=== PATIENT | female | born 1965 | race Caucasian/White ===

== ENCOUNTER → 2016-07-13 | Outpatient (CLI) | payer OTHER ==
[2016-07-13 11:11] LABS: FOLATE 9.78 ng/mL (>2.76)
== END ==
LOC: CCC 08:43
DX: M54.6 Pain in thoracic spine (principal); G62.9 Polyneuropathy, unspecified
CPT/HCPCS: 36415; 72070; 82607; 82746; 84443

== ENCOUNTER → 2016-07-19 | Outpatient (CLI) | payer OTHER | LOC: RAD 08:43 | DX: R25.1 Tremor, unspecified (principal); R26.81 Unsteadiness on feet | CPT/HCPCS: 82565; 70553; A9577 ==

== ENCOUNTER → 2016-07-19 | Outpatient (CLI) | payer OTHER ==
[2016-07-19 12:21] LABS: FOLATE 12.7 ng/mL (>2.76)
== END ==
LOC: CCC 10:09
DX: R26.81 Unsteadiness on feet (principal); G62.9 Polyneuropathy, unspecified
CPT/HCPCS: 36415; 82607; 82746; 84443; 86592

== ENCOUNTER 2017-01-02 09:50 | Emergency (ER) | payer OTHER ==
[2017-01-02] MEDS ORDERED: CARBAMAZEPINE 100 MG TAB.CHEW PO ONE (10:07)
[2017-01-02] MEDS ORDERED: HYDROCODONE/ACETAMINOPHEN 5-325 MG TABLET PO ONE ×2 (10:07→11:20)
--- NOTE | 2017-01-02 11:30 | ER Document Report ---
ED General - General Chief Complaint: Other Stated Complaint: FACIAL PAIN Time Seen by Provider: 01/02/17 10:05 Information source: Patient Notes: Patient presents with left facial pain. It is been going on for approximately 2 weeks. She states it is worse if she moves her mouth such as talking or chewing. Is also worse if it is touched. It is better at rest. It is severe and intermittent. It is a sharp pain. It radiates across her face. She denies any known injuries. She states she did go see her dentist and was informed by the dentist that there is no dental problems contributing to the pain. She states that her neurologist told her she may have trigeminal neuralgia and referred her to the emergency department. TRAVEL OUTSIDE OF THE [place] IN LAST 30 DAYS: No - Related Data Allergies/Adverse Reactions: sulfamethoxazole [From ] Allergy (Verified 01/02/17 09:55) trimethoprim [From Janra] Allergy (Verified 01/02/17 09:55) Past Medical History - General Information source: Patient - Social History Smoking Status: Never Smoker Chew tobacco use (# tins/day): No Frequency of alcohol use: None Drug Abuse: None Family History: Reviewed & Not Pertinent - Past Medical History Cardiac Medical History: Reports: Hx Hypertension Neurological Medical History: Reports: Hx Migraine - persistant and frequent Renal/ Medical History: Denies: Hx Peritoneal Dialysis Surgical Hx: Negative - Immunizations Immunizations up to date: Yes Hx Diphtheria, Pertussis, Tetanus Vaccination: Yes Review of Systems - Review of Systems Constitutional: denies: Chills, Fever Cardiovascular: denies: Chest pain, Palpitations Respiratory: denies: Cough, Short of breath Gastrointestinal: denies: Diarrhea, Vomiting Skin: denies: Change in color, Lesions -: Yes All other systems reviewed and negative Physical Exam - Vital signs Vitals: Temp Pulse Resp BP Pulse Ox 97.3 F 82 18 131/64 H 99 01/02/17 09:56 01/02/17 09:56 01/02/17 09:56 01/02/17 09:56 01/02/17 09:56 Interpretation: Normal - General General appearance: Appears well, Alert - HEENT Head: Normocephalic, Atraumatic Eyes: Normal Pupils: PERRL Notes: Face is tender to palpation. Inspection of the face is unremarkable. - Respiratory Respiratory status: No respiratory distress Chest status: Nontender Breath sounds: Normal Chest palpation: Normal - Cardiovascular Rhythm: Regular Heart sounds: Normal auscultation Murmur: No - Abdominal Inspection: Normal Distension: No distension Bowel sounds: Normal Tenderness: Nontender Organomegaly: No organomegaly - Back Back: Normal, Nontender - Extremities General upper extremity: Normal inspection, Nontender, Normal color, Normal ROM , Normal temperature General lower extremity: Normal inspection, Nontender, Normal color, Normal ROM , Normal temperature, Normal weight bearing. No: Hernandez's sign - Neurological Neuro grossly intact: Yes Cognition: Normal Orientation: AAOx4 [place] Coma Scale Eye Opening: Spontaneous [place] Coma Scale Verbal: Oriented [place] Coma Scale Motor: Obeys Commands [place] Coma Scale Total: 15 Speech: Normal Motor strength normal: LUE, RUE, LLE, RLE Sensory: Normal - Psychological Associated symptoms: Normal affect, Normal mood - Skin Skin Temperature: Warm Skin Moisture: Dry Skin Color: Normal Course - Vital Signs Vital signs: Temp Pulse Resp BP Pulse Ox 97.3 F 82 18 131/64 H 99 01/02/17 09:56 01/02/17 09:56 01/02/17 09:56 01/02/17 09:56 01/02/17 09:56 Discharge - Discharge Clinical Impression: Trigeminal neuralgia of left side of face Condition: Stable Disposition: HOME, SELF-CARE Instructions: Trigeminal Neuralgia ([facility]) Additional Instructions: Please follow-up with your neurologist as soon as possible. While you are taking Tegretol will be very important that your CBC (complete blood count) is monitored regularly by your physician. Prescriptions: Carbamazepine [Tegretol 100 Mg Chewable Tablet] 100 mg PO TID #90 tab.chew Hydrocodone/Acetaminophen [[place] 5-325 mg Tablet] 1 tab PO QID PRN #12 tablet PRN Reason:
[2017-01-02 11:48] VITALS: BP 124/85
== END 2017-01-02 11:48 | disposition home or self-care (01) ==
LOC: ER 09:50
DX: G50.0 Trigeminal neuralgia (principal); I10 Essential (primary) hypertension; Z88.1 Allergy status to other antibiotic agents
CPT/HCPCS: 99283; J3490

== ENCOUNTER 2017-01-08 14:11 | Emergency (ER) | payer OTHER ==
[2017-01-08 14:39] VITALS: BP 116/68
--- NOTE | 2017-01-08 15:19 | ER Document Report ---
ED General - General Chief Complaint: Other Stated Complaint: FACE PAIN Time Seen by Provider: 01/08/17 14:58 Mode of Arrival: Ambulatory Information source: Patient Notes: 51-year-old female history of multiple sclerosis and recent diagnosis of trigeminal neuralgia presents with complaints of improvement of her pain initially but now has worsened. Patient was started on Tegretol, but states when she cries her face hurts that she needs to cry TRAVEL OUTSIDE OF THE [place] IN LAST 30 DAYS: No - HPI Onset: Last week Onset/Duration: Intermittent Quality of pain: Burning Severity: Moderate Pain Level: 2 Associated symptoms: Other Exacerbated by: Other - Crying Relieved by: Denies Similar symptoms previously: Yes Recently seen / treated by doctor: Yes - Related Data Allergies/Adverse Reactions: sulfamethoxazole [From Janra] Allergy (Verified 01/08/17 14:52) trimethoprim [From Janra] Allergy (Verified 01/08/17 14:52) Past Medical History - Social History Smoking Status: Never Smoker Cigarette use (# per day): No Chew tobacco use (# tins/day): No Smoking Education Provided: No Frequency of alcohol use: None Drug Abuse: None Family History: Reviewed & Not Pertinent Patient has suicidal ideation: No Patient has homicidal ideation: No - Past Medical History Cardiac Medical History: Reports: Hx Hypertension Neurological Medical History: Reports: Hx Migraine - persistant and frequent Renal/ Medical History: Denies: Hx Peritoneal Dialysis Past Surgical History: Reports: Hx Tonsillectomy - Immunizations Immunizations up to date: Yes Hx Diphtheria, Pertussis, Tetanus Vaccination: Yes Review of Systems - Review of Systems Notes: REVIEW OF SYSTEMS: CONSTITUTIONAL : Denies fever, chills, or sweats. Denies recent illness. EENT: Admits to facial pain CARDIOVASCULAR: Denies chest pain. Denies palpitations or racing or irregular heart beat. Denies ankle edema. RESPIRATORY: Denies cough, cold, or chest congestion. Denies shortness of breath, difficulty breathing, or wheezing. GASTROINTESTINAL: Denies abdominal pain or distention. Denies nausea, vomiting , or diarrhea. Denies blood in vomitus, stools, or per rectum. Denies black, tarry stools. Denies constipation. GENITOURINARY: Denies difficulty urinating, painful urination, burning, frequency, blood in urine, or discharge. FEMALE GENITOURINARY: Denies vaginal bleeding, heavy or abnormal periods, irregular periods. Denies vaginal discharge or odor. MUSCULOSKELETAL: Denies back or neck pain or stiffness. Denies joint pain or swelling. SKIN: Denies rash, lesions or sores. HEMATOLOGIC : Denies easy bruising or bleeding. LYMPHATIC: Denies swollen, enlarged glands. NEUROLOGICAL: Admits to tremors PSYCHIATRIC: Tearful ALL OTHER SYSTEMS REVIEWED AND NEGATIVE. PHYSICAL EXAMINATION: GENERAL: Well-appearing, well-nourished and in no acute distress. HEAD: Atraumatic, normocephalic. EYES: Pupils equal round and reactive to light, extraocular movements intact, conjunctiva are normal. ENT: Tenderness on palpation of the left cheek NECK: Normal range of motion, supple without lymphadenopathy LUNGS: Breath sounds clear to auscultation bilaterally and equal. No wheezes rales or rhonchi. HEART: Regular rate and rhythm without murmurs ABDOMEN: Soft, nontender, nondistended abdomen. No guarding, no rebound. No masses appreciated. Female : deferred Musculoskeletal: Normal range of motion, no pitting or edema. No cyanosis. NEUROLOGICAL: Cranial nerves grossly intact. Normal speech, normal gait. Normal sensory, motor exams PSYCH: Patient is extremely tearful SKIN: Warm, Dry, normal turgor, no rashes or lesions noted. Dictation was performed using [employer] voice recognition software Physical Exam - Vital signs Vitals: Temp Pulse Resp BP Pulse Ox 97.6 F 83 17 116/68 100 01/08/17 14:36 01/08/17 14:36 01/08/17 14:36 01/08/17 14:36 01/08/17 14:36 Course - Re-evaluation Re-evalutation: 01/08/17 20:27 Patient's examination was compounded with the fact that instead of talking about her current symptoms are pain patient spent approximately 20 minutes crying stating that she has no money, that her MS has caused her to need disability but that no medical surgical tech will help her, patient continues to complain about place she worked at stating that they are lying about her working so they do not have to pay her I will treat the patient with Neurontin for her pain, I have found a ad for lower cost for her After performing a Medical Screening Examination, I estimate there is LOW risk for a DEEP SPACE INFECTION (e.g., KATIE'S ANGINA OR RETROPHARYNGEAL ABSCESS), MENINGITIS, INTRACRANIAL HEMORRHAGE, or AIRWAY COMPROMISE, thus I consider the discharge disposition reasonable. Also, there is no evidence or peritonitis, sepsis, or toxicity. I have reevaluated this patient multiple times and no significant life threatening changes are noted. The patient and I have discussed the diagnosis and risks, and we agree with discharging home with close follow-up with the understanding that symptoms and presentations can change. We also discussed returning to the Emergency Department immediately if new or worsening symptoms occur. We have discussed the symptoms which are most concerning (e.g., changing or worsening pain, trouble swallowing or breathing, neck stiffness or fever) that necessitate immediate return. - Vital Signs Vital signs: Temp Pulse Resp BP Pulse Ox 97.6 F 83 17 116/68 100 01/08/17 14:36 01/08/17 14:36 01/08/17 14:36 01/08/17 14:36 01/08/17 14:36 Discharge - Discharge Clinical Impression: Trigeminal neuralgia of left side of face Condition: Stable Disposition: HOME, SELF-CARE Instructions: Neuropathy ([facility]) Additional Instructions: Please see Dr. Franklni immediately for you concerns return if there are any other concerns Prescriptions: Gabapentin 300 mg PO BID #60 capsule
== END 2017-01-08 15:29 | disposition home or self-care (01) ==
LOC: ER 14:11
DX: G50.0 Trigeminal neuralgia (principal); G35 Multiple sclerosis; R25.1 Tremor, unspecified; I10 Essential (primary) hypertension; Z88.1 Allergy status to other antibiotic agents
CPT/HCPCS: 99283

== ENCOUNTER 2017-01-23 09:37 | Emergency (ER) | payer OTHER ==
[2017-01-23] MEDS ORDERED: DEXAMETHASONE SOD PHOS INJ 10 MG/1 ML VIAL IM ONE (10:02)
[2017-01-23] MEDS ORDERED: DIPHENHYDRAMINE HCL 50 MG/ML VIAL IM ONE (10:02)
[2017-01-23] MEDS ORDERED: FAMOTIDINE 20 MG TABLET PO ONE (10:03)
--- NOTE | 2017-01-23 10:05 | ER Document Report ---
ED General - General Chief Complaint: Allergic Reaction Stated Complaint: POSSIBLE ALLERGIC REACTION Time Seen by Provider: 01/23/17 09:58 Mode of Arrival: Ambulatory Information source: Patient Notes: 51-year-old female history of multiple sclerosis who presents with complaints of allergic reaction. Patient notes she noted a rash over the past few days but worsened yesterday now throughout her body. Patient denies any fevers or chills denies any sob, throat closing TRAVEL OUTSIDE OF THE [place] IN LAST 30 DAYS: No - HPI Onset: Last week Onset/Duration: Persistent, Worse Quality of pain: No pain Severity: Mild Pain Level: Denies Associated symptoms: Allergy/hay fever Exacerbated by: Denies Relieved by: Denies Similar symptoms previously: No Recently seen / treated by doctor: Yes - Related Data Allergies/Adverse Reactions: sulfamethoxazole [From ] Allergy (Verified 01/23/17 09:39) trimethoprim [From Janra] Allergy (Verified 01/23/17 09:39) Past Medical History - Social History Smoking Status: Never Smoker Cigarette use (# per day): No Chew tobacco use (# tins/day): No Smoking Education Provided: No Family History: Reviewed & Not Pertinent Patient has suicidal ideation: No - Past Medical History Cardiac Medical History: Reports: Hx Hypertension Neurological Medical History: Reports: Hx Migraine - persistant and frequent Renal/ Medical History: Denies: Hx Peritoneal Dialysis Past Surgical History: Reports: Hx Tonsillectomy - Immunizations Immunizations up to date: Yes Hx Diphtheria, Pertussis, Tetanus Vaccination: Yes Review of Systems - Review of Systems Notes: REVIEW OF SYSTEMS: CONSTITUTIONAL : Denies fever, chills, or sweats. Denies recent illness. EENT: Denies eye, ear, throat, or mouth pain or symptoms. Denies nasal or sinus congestion or discharge. Denies throat, tongue, or mouth swelling or difficulty swallowing. CARDIOVASCULAR: Denies chest pain. Denies palpitations or racing or irregular heart beat. Denies ankle edema. RESPIRATORY: Denies cough, cold, or chest congestion. Denies shortness of breath, difficulty breathing, or wheezing. GASTROINTESTINAL: Denies abdominal pain or distention. Denies nausea, vomiting , or diarrhea. Denies blood in vomitus, stools, or per rectum. Denies black, tarry stools. Denies constipation. GENITOURINARY: Denies difficulty urinating, painful urination, burning, frequency, blood in urine, or discharge. FEMALE GENITOURINARY: Denies vaginal bleeding, heavy or abnormal periods, irregular periods. Denies vaginal discharge or odor. MUSCULOSKELETAL: Denies back or neck pain or stiffness. Denies joint pain or swelling. SKIN: Admits to rash all throughout her body HEMATOLOGIC : Denies easy bruising or bleeding. LYMPHATIC: Denies swollen, enlarged glands. NEUROLOGICAL: Denies confusion or altered mental status. Denies passing out or loss of consciousness. Denies dizziness or lightheadedness. Denies headache. Denies weakness or paralysis or loss of use of either side. Denies problems with gait or speech. Denies sensory loss, numbness, or tingling. Denies seizures. PSYCHIATRIC: Denies anxiety or stress. Denies depression, suicidal ideation, or homicidal ideation. ALL OTHER SYSTEMS REVIEWED AND NEGATIVE. PHYSICAL EXAMINATION: GENERAL: Well-appearing, well-nourished and in no acute distress. HEAD: Atraumatic, normocephalic. EYES: Pupils equal round and reactive to light, extraocular movements intact, conjunctiva are normal. ENT: Nares patent, oropharynx clear without exudates. Moist mucous membranes. NECK: Normal range of motion, supple without lymphadenopathy LUNGS: Breath sounds clear to auscultation bilaterally and equal. No wheezes rales or rhonchi. HEART: Regular rate and rhythm without murmurs ABDOMEN: Soft, nontender, nondistended abdomen. No guarding, no rebound. No masses appreciated. Female : deferred Musculoskeletal: Normal range of motion, no pitting or edema. No cyanosis. NEUROLOGICAL: Cranial nerves grossly intact. Normal speech, normal gait. Normal sensory, motor exams PSYCH: Normal mood, normal affect. SKIN: Generalized urticarial rash noted in arms legs chest abdomen back Dictation was performed using [employer] voice recognition software Course - Re-evaluation Re-evalutation: 01/23/17 10:18 Patient does admit to a new soap states she washed her clothes afterwards. I believe this may be the cause of it, she states she does not have the financial ability to purchase prednisone which I explained to her was on the $4 list therefore I will give her an injection of Decadron here Pepcid and Benadryl. Patient instructed him very strict return precautions regarding allergic reactions After performing a Medical Screening Examination, I estimate there is LOW risk for AIRWAY COMPROMISE, ANAPHYLAXIS, CELLULITIS, EPIGLOTTIS, or NECROTIZING FASCIITIS, thus I consider the discharge disposition reasonable. Also, there is no evidence or peritonitis, sepsis, or toxicity. I have reevaluated this patient multiple times and no significant life threatening changes are noted. The patient and I have discussed the diagnosis and risks, and we agree with discharging home with close follow-up with the understanding that symptoms and presentations can change. We also discussed returning to the Emergency Department immediately if new or worsening symptoms occur. We have discussed the symptoms which are most concerning (e.g., difficulty breathing or swallowing , fever, changing or worsening pain) that necessitate immediate return. Discharge - Discharge Clinical Impression: Allergic dermatitis Condition: Stable Disposition: HOME, SELF-CARE Instructions: Acute Allergic Reaction ([facility]), Contact Dermatitis ([facility]) Additional Instructions: Please follow-up with her primary care physician for reevaluation of your allergic reaction return immediately if there is any other concerns Prescriptions: Diphenhydramine HCl [Benadryl 50 mg Capsule] 1 cap PO Q6 PRN #20 capsule PRN Reason: Prednisone 60 mg PO DAILY 5 Days tablet
== END 2017-01-23 10:12 | disposition home or self-care (01) ==
LOC: ER 09:37
DX: L23.9 Allergic contact dermatitis, unspecified cause (principal); I10 Essential (primary) hypertension; Z88.1 Allergy status to other antibiotic agents
CPT/HCPCS: 99283; 96372; J1200; J1100

== ENCOUNTER 2017-02-14 08:38 | Emergency (ER) | payer OTHER ==
[2017-02-14] MEDS ORDERED: DEXAMETHASONE SOD PHOS INJ 10 MG/1 ML VIAL IM ONE (10:05)
[2017-02-14] MEDS ORDERED: HYDROXYZINE PAMOATE 25 MG CAPSULE PO ONE (10:06)
[2017-02-14] MEDS ORDERED: FAMOTIDINE 20 MG TABLET PO ONE (10:06)
--- NOTE | 2017-02-14 11:09 | ER Document Report ---
HPI - HPI Patient complains to provider of: Rash and eye swelling Onset: Other Onset/Duration: Intermittent Quality of pain: Burning Severity: Moderate Pain Level: 4 Context: Patient complains of intermittent rash to arms, thighs and chest. Now has some rash on her face and her eyes were swollen this morning. The swelling has since gone down. Patient describes rash as itchy. No vision problems. Associated Symptoms: None Exacerbated by: Other - Scratching Relieved by: Denies Similar symptoms previously: Yes Recently seen / treated by doctor: No - ROS ROS below otherwise negative: Yes Systems Reviewed and Negative: Yes All other systems reviewed and negative - CONSTITUTIONAL Constitutional: DENIES: Fever - EENT EENT: DENIES: Sore Throat, Congestion - NEURO Neurology: DENIES: Headache, Vision blurred - CARDIOVASCULAR Cardiovascular: DENIES: Chest pain - RESPIRATORY Respiratory: DENIES: Trouble Breathing - GASTROINTESTINAL Gastrointestinal: DENIES: Abdominal Pain - URINARY Urinary: DENIES: Dysuria - REPRODUCTIVE Reproductive: DENIES: : - MUSCULOSKELETAL Musculoskeletal: DENIES: Extremity pain - DERM Skin Color: Erythema Skin Problems: Rash Past Medical History - General Information source: Patient - Social History Smoking Status: Never Smoker Frequency of alcohol use: None Drug Abuse: None Lives with: Family Family History: Reviewed & Not Pertinent - Past Medical History Cardiac Medical History: Reports: Hx Hypertension Neurological Medical History: Reports: Hx Migraine - persistant and frequent, Other - Multiple sclerosis Past Surgical History: Reports: Hx Tonsillectomy - Immunizations Immunizations up to date: Yes Hx Diphtheria, Pertussis, Tetanus Vaccination: Yes Vertical Provider Document - CONSTITUTIONAL Agree With Documented VS: Yes Exam Limitations: No Limitations General Appearance: WD/WN, Mild Distress - Patient appears anxious and tearful - INFECTION CONTROL TRAVEL OUTSIDE OF THE [place] IN LAST 30 DAYS: No - HEENT HEENT: Atraumatic, Normocephalic, PERRLA. negative: Conjuctival Injection - RESPIRATORY Respiratory: Breath Sounds Normal, No Respiratory Distress O2 Sat by Pulse Oximetry: 100 - CARDIOVASCULAR Cardiovascular: Regular Rate, Regular Rhythm - GI/ABDOMEN Gastrointestinal: Abdomen Soft - MUSCULOSKELETAL/EXTREMETIES Musculoskeletal/Extremeties: MAEW - NEURO Level of Consciousness: Awake, Alert - DERM Integumentary: Warm, Dry, Rash - Patchy red rash over arms, chest, and thighs. Dry red skin noted around both eyes, no edema noted. Patient keeps rubbing eyes. Sclerae clear, no discharge Course - Vital Signs Vital signs: Temp Pulse Resp BP Pulse Ox 97.8 F 84 120/73 100 02/14/17 09:08 02/14/17 09:08 02/14/17 09:08 02/14/17 09:08 Discharge - Discharge Clinical Impression: Rash Condition: Good Disposition: HOME, SELF-CARE Additional Instructions: OTC hydrocortisone to rash twice daily, do not use around the eyes. Apply cool compresses to eyes for any itching. OTC Benadryl 1-2 tabs every 6 hours as needed for itching OTC Pepcid 20 mg every 12 hours for itching Follow-up with [facility] next February 24 at 10 AM as scheduled Return if symptoms worsen and as needed.
[2017-02-14 11:39] VITALS: BP 122/64
== END 2017-02-14 11:17 | disposition home or self-care (01) ==
LOC: ER 08:38
DX: R21 Rash and other nonspecific skin eruption (principal); R22.0 Localized swelling, mass and lump, head; I10 Essential (primary) hypertension
CPT/HCPCS: 99282; J1100

== ENCOUNTER 2018-04-23 09:23 | Day surgery (SDC) | payer MEDICARE, MEDICAID ==
[~2018-04-23 09:23] MED LIST: PROPOFOL INJ 200 MG/20 ML VIAL IV ONE
[2018-04-23] MEDS ORDERED: KETOROLAC TROMETHAMINE INJ/PF 30 MG/1 ML SDV ONE (10:42)
[2018-04-23] MEDS ORDERED: ACETAMINOPHEN 1,000 MG/100 ML RTUPB IV ONE (11:30)
[2018-04-23 12:09] VITALS: BP 144/88
--- NOTE | 2018-04-23 12:24 | Operative Report ---
Operative Report DATE OF SURGERY: 04/23/18 Operative Report: The risks, benefits and alternatives of the procedure including the risk of bleeding, perforation requiring surgery are explained to the patient in detail and informed consent is obtained. Patient is brought to the endoscopy suite and placed in the left, lateral decubital position. Timeout was called. Propofol medications administered. Rectal examination is done which did not reveal any masses, tears or fissures. An Olympus videoscope was introduced into the patient's rectum. The scope was then carefully advanced all the way to the cecum. The cecum was identified by the usual anatomical landmarks including the ileocecal valve as well as the appendiceal office. Photodocumentation is obtained. The scope was then sequentially pulled back via the various segments of the colon including the ascending colon, hepatic flexure, transverse colon, splenic flexure, descending colon and finally into the rectosigmoid portions of the colon. Retroflexion maneuver is performed. PREOPERATIVE DIAGNOSIS: Colorectal cancer screening. POSTOPERATIVE DIAGNOSIS: Large polyp in the descending colon that was removed via snare polypectomy; placement of an Endo Clip at the post polypectomy site to reduce the risk of post polypectomy bleeding. Right side colon Inflammation status post biopsy. Internal hemorrhoids OPERATION: Colonoscopy with snare polypectomy. Colonoscopy with biopsy SURGEON: WILLIAM MARTÍNEZ ANESTHESIA: LMAC TISSUE REMOVED OR ALTERED: As noted above. COMPLICATIONS: None. ESTIMATED BLOOD LOSS: None. INTRAOPERATIVE FINDINGS: As noted above. PROCEDURE: Patient tolerated procedure well. No immediate postprocedure comp occasions are noted. Patient discharged in good condition. Discharge date 04/23/2018. Discharge diet: Regular. Discharge activity: Regular. 2-3-week follow-up to discuss findings. Patient is instructed to call the office or proceed to the emergency room should there be any further problems or questions. Wait on the pathology. 3-5-year surveillance colonoscopy.
== END 2018-04-23 11:30 | disposition home or self-care (01) ==
LOC: END 09:23
PROVIDERS: ATTEND Internal Medicine Gastroenterology
DX: Z12.11 Encounter for screening for malignant neoplasm of colon (principal); D12.4 Benign neoplasm of descending colon; K52.9 Noninfective gastroenteritis and colitis, unspecified; K64.8 Other hemorrhoids; J45.909 Unspecified asthma, uncomplicated; E78.5 Hyperlipidemia, unspecified; I10 Essential (primary) hypertension; Z79.899 Other long term (current) drug therapy; Z79.1 Long term (current) use of non-steroidal anti-inflammatories (NSAID); Z88.8 Allergy status to other drugs, medicaments and biological substances; Z88.2 Allergy status to sulfonamides; G35 Multiple sclerosis; Z88.3 Allergy status to other anti-infective agents
CPT/HCPCS: 45380; 45385; 88305 ×2; J1885; J2704; J0131; 811

== ENCOUNTER 2018-10-19 00:33 | Emergency (ER) | payer MEDICARE, MEDICAID ==
--- NOTE | 2018-10-19 02:14 | ER Document Report ---
ED Medical Screen (RME) - General Chief Complaint: Dizziness Stated Complaint: DIZZINESS Time Seen by Provider: 10/19/18 02:11 Primary Care Provider: JUAN ALLAN MD [Primary Care Provider] - Follow up in 3-5 days Notes: Patient is a 53-year-old female who presents the emergency department with dizziness and headache. She states that her symptoms started tonight she woke up from her sleep. She has history of MS and tremors. She is uncertain as whether or not this is from her MS. She does have an appointment with her neurologist in the morning. Exam: Alert and oriented. I have greeted and performed a rapid initial assessment of this patient. A comprehensive ED assessment and evaluation of the patient, analysis of test results and completion of medical decision making process will be conducted by an additional ED providers. TRAVEL OUTSIDE OF THE [place] IN LAST 30 DAYS: No - Related Data Allergies/Adverse Reactions: sulfamethoxazole [From Janra] Allergy (Intermediate, Verified 04/23/18 09:32) VERY SLEEPY AND HIVES trimethoprim [From Janra] Allergy (Verified 04/23/18 09:32) Past Medical History - Past Medical History Cardiac Medical History: Reports: Hx Hypertension Denies: Hx Coronary Artery Disease, Hx Heart Attack Pulmonary Medical History: Reports: Hx Asthma - BRONCHIAL ASTHMA SEASONAL Denies: Hx Bronchitis, Hx COPD, Hx Pneumonia Neurological Medical History: Reports: Hx Migraine - persistant and frequent. Denies: Hx Cerebrovascular Accident, Hx Seizures Renal/ Medical History: Denies: Hx Peritoneal Dialysis Musculoskeltal Medical History: Denies Hx Arthritis Past Surgical History: Reports: Hx Tonsillectomy - Immunizations Immunizations up to date: Yes Hx Diphtheria, Pertussis, Tetanus Vaccination: Yes Physical Exam - Vital signs Vitals: Temp Pulse Resp BP Pulse Ox 97.9 F 69 17 146/95 H 100 10/19/18 01:20 10/19/18 01:20 10/19/18 01:20 10/19/18 01:20 10/19/18 01:20 Course - Vital Signs Vital signs: Temp Pulse Resp BP Pulse Ox 97.9 F 69 17 146/95 H 100 10/19/18 01:20 10/19/18 01:20 10/19/18 01:20 10/19/18 01:20 10/19/18 01:20 - Laboratory Result Diagrams: 10/19/18 02:53 10/19/18 02:53 Laboratory results interpreted by me: 10/19/18 10/19/18 02:53 02:53 WBC 13.5 H Seg Neutrophils % 84.6 H Lymphocytes % 8.6 L Absolute Neutrophils 11.4 H Potassium 5.2 H Carbon Dioxide 31 H Creatinine 0.46 L ALT 57 H Doctor's Discharge - Discharge Clinical Impression: Dizziness Headache Qualifiers: Headache type: unspecified Headache chronicity pattern: unspecified pattern Intractability: not intractable Qualified Code(s): R51 - Headache Condition: Stable Disposition: HOME, SELF-CARE Instructions: Dizziness ([facility]), Vertigo ([facility]) Additional Instructions: You are seen today in the emergency department for dizziness and a headache. It is unclear as to what the cause of your dizziness and headache are. This may be due to your multiple sclerosis. Please follow-up with the neurologist in regards to this visit. Please continue to take Tylenol and ibuprofen as needed. The Florence maneuver was done to help with the dizziness. Please follow-up with your primary care provider in regards to this visit. If you develop facial droop, increased weakness, or have any symptoms that are worrisome to you, please return to the emergency department. Referrals: JUAN ALLAN MD [Primary Care Provider] - Follow up in 3-5 days
[2018-10-19] MEDS ORDERED: MECLIZINE HCL 25 MG TABLET PO ONE (02:58)
[2018-10-19 03:03] LABS: ABSOLUTE BASOPHILS # (AUTO) 0.1 10^3/uL (0.0-0.2); ABSOLUTE EOSINOPHILS # (AUTO) 0.1 10^3/uL (0.0-0.6); ABSOLUTE LYMPHOCYTES (AUTO) 1.2 10^3/uL (0.5-4.7); ABSOLUTE MONOCYTES (AUTO) 0.8 10^3/uL (0.1-1.4); ABSOLUTE NEUT (AUTO) 11.4 10^3/uL (1.7-8.2); BASOPHILS % (AUTO) 0.4 % (0-2); EOSINOPHILS % (AUTO) 0.8 % (0-6); HEMATOCRIT 37.6 % (36.0-47.0); HEMOGLOBIN 13.2 g/dL (12.0-15.5); LYMPHOCYTES % (AUTO) 8.6 % (13-45); MEAN CORPUSCULAR HEMOGLOBIN 30.8 pg (27.0-33.4); MEAN CORPUSCULAR HGB CONC 35.1 g/dL (32.0-36.0); MEAN CORPUSCULAR VOLUME 88 fl (80-97); MONOCYTES % (AUTO) 5.6 % (3-13); PLATELET COUNT 347 10^3/uL (150-450); RED BLOOD COUNT 4.28 10^6/uL (3.72-5.28); RED CELL DISTRIBUTION WIDTH 13.3 % (11.5-14.0); SEGMENTED NEUTROPHILS % (AUTO) 84.6 % (42-78); TOTAL CELLS COUNTED % (AUTO) 100 %; WHITE BLOOD COUNT 13.5 10^3/uL (4.0-10.5)
[2018-10-19 03:22] LABS: ALANINE AMINOTRANSFERASE 57 U/L (9-52); ALBUMIN 4.4 g/dL (3.5-5.0); ALKALINE PHOSPHATASE 125 U/L (38-126); ANION GAP 5 (5-19); ASPARTATE AMINO TRANSFERASE 31 U/L (14-36); BILIRUBIN,DIRECT 0.2 mg/dL (0.0-0.4); BILIRUBIN,TOTAL 0.3 mg/dL (0.2-1.3); BLOOD UREA NITROGEN 18 mg/dL (7-20); CALCIUM 9.7 mg/dL (8.4-10.2); CARBON DIOXIDE 31 mmol/L (22-30); CHLORIDE 104 mmol/L (98-107); GLUCOSE 102 mg/dL (75-110); POTASSIUM 5.2 mmol/L (3.6-5.0); SODIUM 140.3 mmol/L (137-145); TOTAL PROTEIN 7.1 g/dL (6.3-8.2)
[2018-10-19] MEDS ORDERED: IBUPROFEN 600 MG TABLET PO ONE (05:27)
[2018-10-19] MEDS ORDERED: ACETAMINOPHEN 325 MG TABLET PO ONE (05:27)
[2018-10-19] MEDS ORDERED: MORPHINE SULFATE 10 MG/ML INJ IM ONE (05:58)
--- NOTE | 2018-10-19 06:02 | ER Document Report ---
ED General - General Chief Complaint: Dizziness Stated Complaint: DIZZINESS Time Seen by Provider: 10/19/18 02:11 Primary Care Provider: JUAN ALLAN MD [Primary Care Provider] - Follow up in 3-5 days Notes: She is a 53-year-old female who presents the emergency department with a chief complaint of dizziness and a headache. She states that it woke her from her sleep at 2300 this evening. She took some Motrin Tylenol earlier today, but she did not have a headache. She felt like the room was spinning to the right. She is able to walk, but it is bothersome when she feels dizzy. She denies any new weakness. She is able to walk. She states that the headache is in the front of her head. Denies any blurred vision, facial droop, numbness or tingling, loss of vision, or double vision. She denies any chest pain, dysuria, or any other symptoms at this time. TRAVEL OUTSIDE OF THE [place] IN LAST 30 DAYS: No - Related Data Allergies/Adverse Reactions: sulfamethoxazole [From Septra] Allergy (Intermediate, Verified 04/23/18 09:32) VERY SLEEPY AND HIVES trimethoprim [From Janra] Allergy (Verified 04/23/18 09:32) Past Medical History - General Information source: Patient - Social History Smoking Status: Never Smoker Frequency of alcohol use: None Drug Abuse: None Family History: Reviewed & Not Pertinent Patient has suicidal ideation: No Patient has homicidal ideation: No - Past Medical History Cardiac Medical History: Reports: Hx Hypertension Denies: Hx Coronary Artery Disease, Hx Heart Attack Pulmonary Medical History: Reports: Hx Asthma - BRONCHIAL ASTHMA SEASONAL Denies: Hx Bronchitis, Hx COPD, Hx Pneumonia Neurological Medical History: Reports: Hx Migraine - persistant and frequent. Denies: Hx Cerebrovascular Accident, Hx Seizures Renal/ Medical History: Denies: Hx Peritoneal Dialysis Musculoskeletal Medical History: Denies Hx Arthritis Past Surgical History: Reports: Hx Tonsillectomy - Immunizations Immunizations up to date: Yes Hx Diphtheria, Pertussis, Tetanus Vaccination: Yes Review of Systems - Review of Systems Notes: REVIEW OF SYSTEMS: CONSTITUTIONAL : Denies recent illness. Denies recent unintentional weight loss. Denies fever, chills, or sweats. EENT: Denies eye, ear, throat, or mouth pain, discharge, or symptoms. Denies nasal or sinus congestion. CARDIOVASCULAR: Denies chest pain. RESPIRATORY: Denies shortness of breath, cough, congestion, difficulty breath ing, or wheezing. GASTROINTESTINAL: Denies nausea, vomiting, and diarrhea. Denies abdominal pain. Denies constipation. GENITOURINARY: Denies difficulty urinating, burning, blood in urine, urgency or frequency. MUSCULOSKELETAL: Denies neck and back pain. Denies joint pain or swelling. SKIN: Denies rash, itchiness, or lesions HEMATOLOGIC : Denies easy bruising or bleeding. LYMPHATIC: Denies swollen, painful, enlarged glands. NEUROLOGICAL: See HPI PSYCHIATRIC: Denies stress, anxiety, alteration in sleep patterns, or depression. All other systems reviewed and negative. Physical Exam - Vital signs Vitals: Temp Pulse Resp BP Pulse Ox 97.9 F 69 17 146/95 H 100 10/19/18 01:20 10/19/18 01:20 10/19/18 01:20 10/19/18 01:20 10/19/18 01:20 - Notes Notes: PHYSICAL EXAMINATION: GENERAL: Appears well, healthy, well-nourished, no acute distress. HEAD: Normocephalic, atraumatic. EYES: PERRL, conjunctiva normal, all extraocular movements intact, sclera nonicteric ENT: Dry mucous membranes. NECK: Supple, no noticeable swelling, redness, rash. Normal range of motion. LUNGS: Equal breath sounds bilaterally and clear to auscultation. No wheezes rales or rhonchi. CARDIOVASCULAR: S1-S2, regular rate, regular rhythm. Radial pulses 2+, normal. ABDOMEN: Normoactive bowel sounds. Soft, nontender, no guarding, no rebound tenderness, and no masses palpated. EXTREMITIES: Normal strength and range of motion, no pitting or edema. No cyanosis. NEUROLOGICAL: Moves all extremities upon command. Strength 5/5 in all extremities. PSYCH: Normal mood, normal affect. SKIN: Warm, dry. No rash, lesions, ulcerations noted. Normal skin turgor. Course - Re-evaluation Re-evalutation: 10/19/18 Patient stated that she did not feel better after receiving meclizine. She states that the room is spinning she sits up is when she feels most dizzy. I have a very low suspicion for an intracranial bleed, intracranial mass, or any life-threatening etiology at this time. Labs are unremarkable. Florence maneuver was done on her. Unfortunately the patient needed to leave quickly because her daughter needed to be at work by 6:30 in the morning. She received morphine to help with her pain. I strictly advised her to follow-up with the neurologist she is scheduled to see. I told her to make sure he evaluates her headaches. She is in agreement with this plan. Verbal discharge instructions were given to the patient. They verbalized understanding. They are stable for discharge. - Vital Signs Vital signs: Temp Pulse Resp BP Pulse Ox 97.5 F 65 20 140/88 H 100 10/19/18 06:01 10/19/18 06:01 10/19/18 06:01 10/19/18 06:01 10/19/18 06:01 - Laboratory Result Diagrams: 10/19/18 02:53 10/19/18 02:53 Laboratory results interpreted by me: 10/19/18 10/19/18 02:53 02:53 WBC 13.5 H Seg Neutrophils % 84.6 H Lymphocytes % 8.6 L Absolute Neutrophils 11.4 H Potassium 5.2 H Carbon Dioxide 31 H Creatinine 0.46 L ALT 57 H Discharge - Discharge Clinical Impression: Dizziness Headache Qualifiers: Headache type: unspecified Headache chronicity pattern: unspecified pattern Intractability: not intractable Qualified Code(s): R51 - Headache Condition: Stable Disposition: HOME, SELF-CARE Instructions: Dizziness ([facility]), Vertigo ([facility]) Additional Instructions: You are seen today in the emergency department for dizziness and a headache. It is unclear as to what the cause of your dizziness and headache are. This may be due to your multiple sclerosis. Please follow-up with the neurologist in regards to this visit. Please continue to take Tylenol and ibuprofen as needed. The Florence maneuver was done to help with the dizziness. Please follow-up with your primary care provider in regards to this visit. If you develop facial droop, increased weakness, or have any symptoms that are worrisome to you, jeffrey ramesh return to the emergency department. Referrals: JUAN ALLAN MD [Primary Care Provider] - Follow up in 3-5 days
[2018-10-19 06:22] VITALS: BP 140/88
--- NOTE | 2018-10-19 07:41 | EKG REPORT ---
SEVERITY:- ABNORMAL ECG - SINUS RHYTHM NONSPECIFIC IVCD WITH LAD : Confirmed by: Kevin Gonzalez MD 19-Oct-2018 07:41:07
== END 2018-10-19 06:23 | disposition home or self-care (01) ==
LOC: ER 00:33
DX: R42 Dizziness and giddiness (principal); R51 Headache; I10 Essential (primary) hypertension; J45.909 Unspecified asthma, uncomplicated; Z88.1 Allergy status to other antibiotic agents
CPT/HCPCS: 93005; 99284; 96372; 36415; 85025; 80053; 93010; A9270 ×3; J2270

== ENCOUNTER 2018-11-07 06:54 | Emergency (ER) | payer MEDICARE, MEDICAID ==
[2018-11-07 07:02] VITALS: BP 141/88
[2018-11-07] MEDS ORDERED: METHOCARBAMOL 500 MG TABLET PO ONE (07:22)
--- NOTE | 2018-11-07 07:28 | ER Document Report ---
ED Neck/Back Problem - General Chief Complaint: Back Pain Stated Complaint: BACK PAIN Time Seen by Provider: 11/07/18 07:11 Primary Care Provider: JUAN ALLAN MD [Primary Care Provider] - Follow up as needed Notes: She is a 53-year-old female with a history of MS, fibromyalgia, hypertension, high cholesterol who reports to the emergency department with a chief complaint of back pain and left upper leg pain. Patient states she uses a walker to ambulate. States prior to EMS arrival she was ambulating in her home with her walker when her left leg locked up on her. Patient states that she knew she would fall so she grabbed onto the front of the walker and fell forward. Patient states she did not obtain an injury from this fall as she did this very slowly and lowered herself to the ground. She states that her daughter heard the walker fall to the ground and immediately came to her side. Patient states that she is having a left upper leg pain that radiates into her left hip and down her left leg. Patient reports she does have intermittent numbness and tingling down the left leg but this is not new and has been ongoing due to her MS. Patient denies abdominal pain. Patient states she is having a lower back pain that radiates to her upper back but states that this is her normal MS pain. Patient denies any urinary symptoms. TRAVEL OUTSIDE OF THE [place] IN LAST 30 DAYS: No - Related Data Allergies/Adverse Reactions: sulfamethoxazole [From Septra] Allergy (Intermediate, Verified 11/07/18 07:41) VERY SLEEPY AND HIVES trimethoprim [From Janra] Allergy (Verified 11/07/18 07:41) Past Medical History - General Information source: Patient - Social History Smoking Status: Unknown if Ever Smoked Cigarette use (# per day): No Chew tobacco use (# tins/day): No Frequency of alcohol use: None Drug Abuse: None Lives with: Family Family History: Reviewed & Not Pertinent Patient has suicidal ideation: No Patient has homicidal ideation: No - Past Medical History Cardiac Medical History: Reports: Hx Hypertension Denies: Hx Coronary Artery Disease, Hx Heart Attack Pulmonary Medical History: Reports: Hx Asthma - BRONCHIAL ASTHMA SEASONAL Denies: Hx Bronchitis, Hx COPD, Hx Pneumonia EENT Medical History: Reports: None Neurological Medical History: Reports: Hx Migraine - persistant and frequent. Denies: Hx Cerebrovascular Accident, Hx Seizures Endocrine Medical History: Reports: None Renal/ Medical History: Reports: None. Denies: Hx Peritoneal Dialysis Malignancy Medical History: Reports: None GI Medical History: Reports: None Musculoskeletal Medical History: Denies Hx Arthritis, Reports Hx Fibromyalgia, Reports Hx Multiple Sclerosis, Reports Hx Muscle Spasm, Reports Other - Tremors Skin Medical History: Reports None Psychiatric Medical History: Reports: None Traumatic Medical History: Reports: None Infectious Medical History: Reports: None Surgical Hx: Negative Past Surgical History: Reports: Hx Tonsillectomy - Immunizations Immunizations up to date: Yes Hx Diphtheria, Pertussis, Tetanus Vaccination: Yes Review of Systems - Review of Systems Constitutional: No symptoms reported EENT: No symptoms reported Cardiovascular: No symptoms reported Respiratory: No symptoms reported Gastrointestinal: No symptoms reported Genitourinary: No symptoms reported Female Genitourinary: No symptoms reported Musculoskeletal: See HPI Skin: No symptoms reported Hematologic/Lymphatic: No symptoms reported Neurological/Psychological: No symptoms reported Physical Exam - Vital signs Vitals: Temp Pulse Resp BP Pulse Ox 98.2 F 82 18 141/88 H 98 11/07/18 07:01 11/07/18 07:01 11/07/18 07:01 11/07/18 07:01 11/07/18 07:01 Interpretation: Normal - Notes Notes: GENERAL: Tearful, visibly upset, well-nourished. HEAD: Atraumatic, normocephalic. EYES: Pupils equal round and reactive to light, extraocular movements intact, sclera anicteric, conjunctiva are normal. ENT: Nares patent, oropharynx clear without exudates. Moist mucous membranes. NECK: Normal range of motion, supple without lymphadenopathy or JVD. LUNGS: Breath sounds clear to auscultation bilaterally and equal. No wheezes r ales or rhonchi. HEART: Regular rate and rhythm without murmurs, rubs or gallops. ABDOMEN: Soft, nontender, normoactive bowel sounds. No guarding, no rebound. No masses appreciated. BACK: No cervical, thoracic, lumbar midline tenderness. No saddle anesthesia, normal distal neurovascular exam. GENITOURINARY: Deferred. EXTREMITIES: Normal range of motion to bilateral lower extremities, patient re ports relief of pain when flexing the left leg, no tenderness to palpation to the left hip or left upper leg, no bruising or erythema noted, no pitting or edema. No clubbing or cyanosis. NEUROLOGICAL: Cranial nerves II through XII grossly intact. Normal speech. PSYCH: Hard to console, irritable, visibly upset. SKIN: Warm, Dry, normal turgor, no rashes or lesions noted. Course - Re-evaluation Re-evalutation: 11/07/18 07:31 Upon initial assessment patient is resting on stretcher and tearful. Patient is visibly upset. Patient states that she had an appointment with a new doctor for her MS yesterday but was unable to make it due to her appointment being at 2 in the afternoon and that she is unable to get out in the heat because of the MS. Patient states she is frustrated because she feels like her physicians are not listening to her complaints she feels like her MS is progressing. She states she is told her provider multiple times that she needs a wheelchair as her legs do frequently give out on her. Patient states that her left upper leg pain feels like a muscle cramp. Patient states that this has happened before and as a result her legs tighten up. Patient repeatedly stated she did not injure herself as she lowered herself to the ground this morning while ambulating with her walker. Patient states that her back pain feels like her normal back pain due to her MS. After speaking with the patient she was able to calm down. I will give patient a muscle relaxer and reevaluate. My plan is to discharge. 11/07/18 08:05 Upon reevaluation that patient states that the muscle relaxer did improve her pain. Patient is moving all extremities. When telling the patient she will be discharged comes very upset and tearful as she states that she is not sure how she is going to get home. I did speak with our marketing secretary who stated friendly would be able to transfer her home by wheelchair. I did inform the patient that she would have to pay out of pocket. Patient states she could do this 11/07/18 08:06 - Vital Signs Vital signs: Temp Pulse Resp BP Pulse Ox 98.2 F 82 18 141/88 H 98 11/07/18 07:01 11/07/18 07:01 11/07/18 07:01 11/07/18 07:01 11/07/18 07:01 Discharge - Discharge Clinical Impression: Leg pain, left, Multiple sclerosis Back pain Qualifiers: Back pain location: low back pain Chronicity: chronic Back pain laterality: unspecified Sciatica presence: without sciatica Qualified Code(s): M54.5 - Low back pain Condition: Stable Additional Instructions: Today you were seen in the emergency department for upper leg pain. You have stated that this feels like your recent MS symptoms. While you are in the emergency department I did give you a muscle relaxer. This did help with your discomfort. Please follow-up with your doctor that you were supposed to see yesterday for your MS. Please make them aware of your symptoms and the need for a wheelchair. Please return to the emergency department for worsening signs or symptoms to include fall with injury, inability to ambulate, loss of bowel or bladder, increased numbness or tingling to the lower extremities or any other concerning signs or symptoms. Muscle Relaxers Muscle relaxing medications are usually prescribed for acute muscle spasm or injury to the neck and back. They are often combined with antiinflammatory pain medication for increased relief. You may stop the muscle relaxer when the pain and stiffness have improved. Start the medication again if spasms recur. Muscle relaxers may cause drowsiness, especially with the first dose. Do not operate machinery or drive while under the effects of the medication. Most muscle relaxers last up to 24 hours. Do not combine the medication with alcohol. Prescriptions: Methocarbamol [Robaxin 750 mg Tablet] 750 mg PO Q6 PRN #10 tablet PRN Reason: Referrals: JUAN ALLAN MD [Primary Care Provider] - Follow up as needed
== END 2018-11-07 08:10 | disposition home or self-care (01) ==
LOC: ER 06:54
DX: M25.552 Pain in left hip (principal); M79.605 Pain in left leg; M54.5 Low back pain; M54.9 Dorsalgia, unspecified; M54.6 Pain in thoracic spine; W19.XXXA Unspecified fall, initial encounter; G35 Multiple sclerosis; I10 Essential (primary) hypertension; J45.909 Unspecified asthma, uncomplicated
CPT/HCPCS: 99283; A9270

== ENCOUNTER → 2019-02-21 | Outpatient (CLI) | payer MEDICARE, MEDICAID ==
[2019-02-21 13:32] LABS: HEMATOCRIT 36.7 % (36.0-47.0); HEMOGLOBIN 12.9 g/dL (12.0-15.5); MEAN CORPUSCULAR HEMOGLOBIN 30.7 pg (27.0-33.4); MEAN CORPUSCULAR HGB CONC 35.1 g/dL (32.0-36.0); MEAN CORPUSCULAR VOLUME 88 fl (80-97); PLATELET COUNT 366 10^3/uL (150-450); RED BLOOD COUNT 4.19 10^6/uL (3.72-5.28); RED CELL DISTRIBUTION WIDTH 12.9 % (11.5-14.0); WHITE BLOOD COUNT 5.2 10^3/uL (4.0-10.5)
[2019-02-21 13:56] LABS: ALBUMIN 4.4 g/dL (3.5-5.0); ALKALINE PHOSPHATASE 114 U/L (38-126); ANION GAP 8 (5-19); ASPARTATE AMINO TRANSFERASE 37 U/L (14-36); BILIRUBIN,DIRECT 0.2 mg/dL (0.0-0.4); BILIRUBIN,TOTAL 0.5 mg/dL (0.2-1.3); BLOOD UREA NITROGEN 14 mg/dL (7-20); CALCIUM 9.5 mg/dL (8.4-10.2); CARBON DIOXIDE 32 mmol/L (22-30); CHLORIDE 100 mmol/L (98-107); GLUCOSE 78 mg/dL (75-110); POTASSIUM 4.4 mmol/L (3.6-5.0); TOTAL PROTEIN 7.2 g/dL (6.3-8.2)
[2019-02-21 14:14] LABS: FREE T3 4.21 pg/mL (2.77-5.27); FREE T4 (FREE THYROXINE) 0.79 ng/dL (0.78-2.19)
[2019-02-21 14:27] LABS: THYROID STIMULATING HORMONE 0.91 uIU/mL (0.47-4.68)
[2019-02-21 15:02] LABS: FOLATE 9.35 ng/mL (>2.76)
== END ==
LOC: OD 12:48
PROVIDERS: ATTEND Nurse Practitioner Family
DX: F32.9 Major depressive disorder, single episode, unspecified (principal); R42 Dizziness and giddiness
CPT/HCPCS: 36415; 80053; 82607; 82746; 84439; 84443; 84481; 85027